=== PATIENT | female | born 1945 | race Caucasian/White ===

== ENCOUNTER 2023-08-07 11:43 | Inpatient (IN) | payer OTHER ==
--- OUTSIDE RECORDS SUMMARY | 2023-08-07 11:47 | XMS REPORT | Continuity of Care Document ---
Author Name Unknown Address [address] [facility] [address] [place] [address] [facility] thconnect Address [address] 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 Name Role Phone Pcp, Patient Does Not Have A Primary Care Physic yuly Luz Elena Luna Attending Clinician Unavailable Kerline Valentin Attending Clinician Unavailable Hazel Lara Attending Clinician Unavailable Janet DIAZ, Portia Swift Attending Clinician UnavailJO ANN Liu Attending Clinician Unavailable Doctor Unassigned, [place] Attending Clinician U navailable Payers Payer Name Policy Type Policy Number Effective Date Expirati on Date Source [employer] MEDICARE PPO 53 [id number] [facility] Problems Condition Name Condition Details Condition Category Status Onset Date Resolution Date Last Treatment Date Treating Clinician Comments Source Total knee replacemen t status Total knee replacemen t status Disease Active 12-12 00:00: 00 [facility] Gastroesop hageal reflux disease GERD (gastroeso phageal reflux disease) Problem Active [facility] Hyperlipid emia Hyperlipid emia Problem Active [facility] History of bilateral mastectomy History of bilateral mastectomy Problem Active [facility] Prediabete s Prediabete s Problem Active [facility] Asthma without status asthmaticu s Asthma without status asthmaticu s or acute exacerbati on Problem Active [facility] Personal history of primary malignant neoplasm of breast History of breast cancer Problem Active [facility] [id number] Pain in left knee Problem Active [facility] [id number] Pain in right knee Problem Active [facility] [id number] Anxiety Problem Active [facility] [id number] Tendonitis of wrist, right Problem Active [facility] [id number] Other chronic pain Problem Active [facility] [id number] Right wrist pain Problem Active [facility] Allergic rhinitis Allergic rhinitis, unspecifie d seasonalit y, unspecifie d trigger Problem Active [facility] [id number] Essential hypertensi on Problem Active [facility] [id number] Goiter Problem Active [facility] [id number] Thyroid nodule Problem Active [facility] [id number] Pain, joint, hand, right Problem Active [facility] Allergies, Adverse Reactions, Alerts Allergy Name Allergy Type Status Severity Reaction(s) Onset Date Inactive Date Treating Clinician Comments Source Tramadol Propensi ty to adverse reaction s to drug Active Nausea and/or Vomiting 12-12 00:00: 00 [facility] TRAMADOL DRUG INGREDI Active High N/V 12-12 00:00: 00 [facility] Aspartam e Propensi ty to adverse reaction s to drug Active Rash 12-07 00:00: 00 [facility] Codeine Propensi ty to adverse reaction s to drug Active Nausea and/or Vomiting 12-07 00:00: 00 Severe nausea and vomiting [facility] Hydrocod one Propensi ty to adverse reaction s to drug Active Nausea and/or Vomiting 12-07 00:00: 00 Severe nausea and vomiting [facility] CODEINE DRUG INGREDI Active High N/V 12-07 00:00: 00 [facility] HYDROCOD ONE DRUG INGREDI Active High N/V 12-07 00:00: 00 [facility] MORPHINE DRUG INGREDI Active High N/V 12-07 00:00: 00 [facility] ASPARTAM E DRUG INGREDI Active Med ITCHING 12-07 00:00: 00 [facility] Morphine Propensi ty to adverse reaction s to drug Active Nausea and/or Vomiting 12-07 00:00: 00 Severe nausea and vomiting [facility] 8432 Drug allergy Active rash,itching ,pain [facility] Codeine Codeine Active vomiting [facility] Social History Social Habit Start Date Stop Date Quantity Comments Source History of Tobacco Use [facility] Sex Assigned At [facility] Exposure to SARS-CoV-2 (event) Not sure [facility] Tobacco use and exposure 2015-02-02 00:00:00 2015-02-02 00:00:00 Never used [facility] Alcohol intake 2015-02-02 00:00:00 2015-02-02 00:00:00 Current non-drinker of alcohol (finding) [facility] Smoking Status Start Date Stop Date Source Never Smoker [facility] Medications Ordered Medication Name Filled Medication Name Start Date Stop Date Current Medication? Ordering Clinician Indication Dosage Frequency Signature (SIG) Comments Components Source Medrol 4 MG Medrol 4 MG 1-04 00:00: 00 No Medrol 4 MG ProAir HFA ProAir HFA 12-22 00:00: 00 Yes Hazel Millender 2 puffs as needed for sob/wheezi ng [facility] Albuterol Sulfate Albuterol Sulfate 12-22 00:00: 00 Yes Hazel Millender 3 ml as needed for sob/wheezi ng [facility] BusPIRone HCl BusPIRone HCl -28 00:00: 00 Yes Hazel Millender 1 tablet [facility] Cardura Cardura 3-20 00:00: 00 Yes Hazel Millender 1 tablet as needed for bp > or = 150/90 [facility] lisinopril (PRINIVIL,Z ESTRIL) 40 mg tablet 02-02 16:16: 46 Yes 40mg Take 40 mg by mouth daily. [facility] pravastatin (PRAVACHOL) 40 mg tablet 02-02 16:16: 46 Yes 40mg Take 40 mg by mouth daily. [facility] mometasone (NASONEX) 50 mcg/actuati on nasal spray 02-02 16:16: 46 Yes 2{spray } Use 2 Sprays in each nostril as needed. [facility] hydrochloro thiazide (ESIDRIX) 50 mg tablet 02-02 16:16: 46 Yes 25mg Take 25-50 mg by mouth daily. [facility] DOCUSATE CALCIUM (STOOL SOFTENER ORAL) 02-02 16:16: 46 Yes 1{tbl} Take 1 Tab by mouth as needed for Constipati on. [facility] ranitidine (ZANTAC) 150 mg tablet 02-02 16:16: 46 Yes 150mg Take 150 mg by mouth daily. [facility] cetirizine (ZYRTEC) 10 mg tablet 02-02 16:16: 46 Yes 10mg Take 10 mg by mouth daily. [facility] MULTIVITAMI N ORAL 02-02 16:16: 46 Yes 1{tbl} Take 1 Tab by mouth daily. [facility] omega-3 fatty acids-vitam in E (FISH OIL) 1,000 mg capsule 02-02 16:16: 46 Yes 1g Take 1 g by mouth daily. [facility] aspirin 81 mg chewable tablet 02-02 16:16: 46 Yes 81mg Take 81 mg by mouth daily. [facility] ALBUTEROL SULFATE (PROAIR HFA INHALE) 02-02 16:16: 46 Yes 2{puff} Inhale 2 Puffs every 4 (four) hours as needed. [facility] lisinopril (PRINIVIL,Z ESTRIL) 40 mg tablet 02-02 16:16: 46 Yes 40mg Take 40 mg by mouth daily. [facility] pravastatin (PRAVACHOL) 40 mg tablet 02-02 16:16: 46 Yes 40mg Take 40 mg by mouth daily. [facility] mometasone (NASONEX) 50 mcg/actuati on nasal spray 02-02 16:16: 46 Yes 2{spray } Use 2 Sprays in each nostril as needed. [facility] hydrochloro thiazide (ESIDRIX) 50 mg tablet 02-02 16:16: 46 Yes 25mg Take 25-50 mg by mouth daily. [facility] DOCUSATE CALCIUM (STOOL SOFTENER ORAL) 02-02 16:16: 46 Yes 1{tbl} Take 1 Tab by mouth as needed for Constipati on. [facility] ranitidine (ZANTAC) 150 mg tablet 02-02 16:16: 46 Yes 150mg Take 150 mg by mouth daily. [facility] cetirizine (ZYRTEC) 10 mg tablet 02-02 16:16: 46 Yes 10mg Take 10 mg by mouth daily. [facility] MULTIVITAMI N ORAL 02-02 16:16: 46 Yes 1{tbl} Take 1 Tab by mouth daily. [facility] omega-3 fatty acids-vitam in E (FISH OIL) 1,000 mg capsule 02-02 16:16: 46 Yes 1g Take 1 g by mouth daily. [facility] aspirin 81 mg chewable tablet 02-02 16:16: 46 Yes 81mg Take 81 mg by mouth daily. [facility] ALBUTEROL SULFATE (PROAIR HFA INHALE) 02-02 16:16: 46 Yes 2{puff} Inhale 2 Puffs every 4 (four) hours as needed. [facility] lisinopril (PRINIVIL,Z ESTRIL) 40 mg tablet 02-02 16:16: 46 Yes 40mg Take 40 mg by mouth daily. [facility] pravastatin (PRAVACHOL) 40 mg tablet 02-02 16:16: 46 Yes 40mg Take 40 mg by mouth daily. [facility] mometasone (NASONEX) 50 mcg/actuati on nasal spray 02-02 16:16: 46 Yes 2{spray } Use 2 Sprays in each nostril as needed. [facility] hydrochloro thiazide (ESIDRIX) 50 mg tablet 02-02 16:16: 46 Yes 25mg Take 25-50 mg by mouth daily. [facility] DOCUSATE CALCIUM (STOOL SOFTENER ORAL) 02-02 16:16: 46 Yes 1{tbl} Take 1 Tab by mouth as needed for Constipati on. [facility] ranitidine (ZANTAC) 150 mg tablet 02-02 16:16: 46 Yes 150mg Take 150 mg by mouth daily. [facility] cetirizine (ZYRTEC) 10 mg tablet 02-02 16:16: 46 Yes 10mg Take 10 mg by mouth daily. [facility] MULTIVITAMI N ORAL 02-02 16:16: 46 Yes 1{tbl} Take 1 Tab by mouth daily. [facility] omega-3 fatty acids-vitam in E (FISH OIL) 1,000 mg capsule 02-02 16:16: 46 Yes 1g Take 1 g by mouth daily. [facility] aspirin 81 mg chewable tablet 02-02 16:16: 46 Yes 81mg Take 81 mg by mouth daily. [facility] ALBUTEROL SULFATE (PROAIR HFA INHALE) 02-02 16:16: 46 Yes 2{puff} Inhale 2 Puffs every 4 (four) hours as needed. [facility] lisinopril (PRINIVIL,Z ESTRIL) 40 mg tablet 02-02 16:16: 46 Yes 40mg Take 40 mg by mouth daily. [facility] pravastatin (PRAVACHOL) 40 mg tablet 02-02 16:16: 46 Yes 40mg Take 40 mg by mouth daily. [facility] mometasone (NASONEX) 50 mcg/actuati on nasal spray 02-02 16:16: 46 Yes 2{spray } Use 2 Sprays in each nostril as needed. [facility] hydrochloro thiazide (ESIDRIX) 50 mg tablet 02-02 16:16: 46 Yes 25mg Take 25-50 mg by mouth daily. [facility] DOCUSATE CALCIUM (STOOL SOFTENER ORAL) 02-02 16:16: 46 Yes 1{tbl} Take 1 Tab by mouth as needed for Constipati on. [facility] ranitidine (ZANTAC) 150 mg tablet 02-02 16:16: 46 Yes 150mg Take 150 mg by mouth daily. [facility] cetirizine (ZYRTEC) 10 mg tablet 02-02 16:16: 46 Yes 10mg Take 10 mg by mouth daily. [facility] MULTIVITAMI N ORAL 02-02 16:16: 46 Yes 1{tbl} Take 1 Tab by mouth daily. [facility] omega-3 fatty acids-vitam in E (FISH OIL) 1,000 mg capsule 02-02 16:16: 46 Yes 1g Take 1 g by mouth daily. [facility] aspirin 81 mg chewable tablet 02-02 16:16: 46 Yes 81mg Take 81 mg by mouth daily. [facility] ALBUTEROL SULFATE (PROAIR HFA INHALE) 02-02 16:16: 46 Yes 2{puff} Inhale 2 Puffs every 4 (four) hours as needed. [facility] lisinopril (PRINIVIL,Z ESTRIL) 40 mg tablet 02-02 16:16: 46 Yes 40mg Take 40 mg by mouth daily. [facility] pravastatin (PRAVACHOL) 40 mg tablet 02-02 16:16: 46 Yes 40mg Take 40 mg by mouth daily. [facility] mometasone (NASONEX) 50 mcg/actuati on nasal spray 02-02 16:16: 46 Yes 2{spray } Use 2 Sprays in each nostril as needed. [facility] hydrochloro thiazide (ESIDRIX) 50 mg tablet 02-02 16:16: 46 Yes 25mg Take 25-50 mg by mouth daily. [facility] DOCUSATE CALCIUM (STOOL SOFTENER ORAL) 02-02 16:16: 46 Yes 1{tbl} Take 1 Tab by mouth as needed for Constipati on. [facility] ranitidine (ZANTAC) 150 mg tablet 02-02 16:16: 46 Yes 150mg Take 150 mg by mouth daily. [facility] cetirizine (ZYRTEC) 10 mg tablet 02-02 16:16: 46 Yes 10mg Take 10 mg by mouth daily. [facility] MULTIVITAMI N ORAL 02-02 16:16: 46 Yes 1{tbl} Take 1 Tab by mouth daily. [facility] omega-3 fatty acids-vitam in E (FISH OIL) 1,000 mg capsule 02-02 16:16: 46 Yes 1g Take 1 g by mouth daily. [facility] aspirin 81 mg chewable tablet 02-02 16:16: 46 Yes 81mg Take 81 mg by mouth daily. [facility] ALBUTEROL SULFATE (PROAIR HFA INHALE) 02-02 16:16: 46 Yes 2{puff} Inhale 2 Puffs every 4 (four) hours as needed. [facility] Hydrochloro thiazide Hydrochloro thiazide Yes Hazel Millender 1 tablet in the morning [facility] Fish Oil Fish Oil Yes Hazel Millender 1 capsule [facility] Fluticasone Propionate Fluticasone Propionate Yes Hazel Millender 2 sprays in each nostril [facility] Multivitami ns Plus Zinc Multivitami ns Plus Zinc Yes Hazel Millender not defined [facility] Pravastatin Sodium Pravastatin Sodium Yes Hazel Millender 1 tablet in the evening [facility] Advair Diskus Advair Diskus Yes Hazel Millender 1 puff [facility] Aspir-81 Aspir-81 Yes Hazel Millender 1 tablet [facility] Stool Softener Stool Softener Yes Hazel Millender 1 capsule as needed [facility] Zyrtec Allergy Zyrtec Allergy Yes Hazel Millender 1 tablet [facility] Losartan Potassium Losartan Potassium Yes Hazel Millender 1 tablet [facility] Advair Diskus 250-50 MCG/DOSE Advair Diskus 250-50 MCG/DOSE No 1{puff} BID Advair Diskus 250-50 MCG/DOSE ZyrTEC Allergy 10 MG ZyrTEC Allergy 10 MG No 1{table t} ZyrTEC Allergy 10 MG Aspir-81 81 MG Aspir-81 81 MG No 1{table t} QD Aspir-81 81 MG Albuterol Sulfate (2.5 MG/3ML) 0.083% Albuterol Sulfate (2.5 MG/3ML) 0.083% No Albuterol Sulfate (2.5 MG/3ML) 0.083% Fluticasone Propionate 50 MCG/ACT Fluticasone Propionate 50 MCG/ACT No 2{spray s_in_ea ch_nost ril} QD Fluticason e Propionate 50 MCG/ACT ProAir HFA 108 (90 Base) MCG/ACT ProAir HFA 108 (90 Base) MCG/ACT No ProAir HFA 108 (90 Base) MCG/ACT Stool Softener 100 MG Stool Softener 100 MG No 1{capsu le_as_n eeded} QD Stool Softener 100 MG Losartan Potassium 100 mg Losartan Potassium 100 mg No 1{table t} QD Losartan Potassium 100 mg Fish Oil 1000 MG Fish Oil 1000 MG No 1{capsu le} QD Fish Oil 1000 MG busPIRone HCl 7.5 MG busPIRone HCl 7.5 MG No 1{table t} busPIRone HCl 7.5 MG Pravastatin Sodium 40 MG Pravastatin Sodium 40 MG No 1{table t_in_ e_eveni ng} QD Pravastati n Sodium 40 MG hydroCHLORO thiazide 25 mg hydroCHLORO thiazide 25 mg No 1{table t_in_ e_herve ng} QD hydroCHLOR Othiazide 25 mg Multivitami ns Plus Zinc - Multivitami ns Plus Zinc - No Multivitam ins Plus Zinc - Cardura 1 MG Cardura 1 MG No QD Cardura 1 MG Vital Signs Vital Name Observation Time Observation Value Pam mason height 2021-05-15 09:00:00 65.5 [in_i] Comm on [facility] weight 2021-05-15 09:00:00 189 [lb_av] Comm on [facility] bmi 2021-05-15 09:00:00 30.97 kg/m2 Comm on [facility] blood pressure systolic 2021-05-15 09:00:00 149 mm[Hg] [facility] blood pressure diastolic 2021-05-15 09:00:00 80 mm[Hg] [facility] Procedures Procedure Date / Time Performed Performing Clinicia n Source ASSIGNMENT OF BENEFITS 2021-01-01 22:14:46 Docto r Unassigned, [place] [facility] Encounters Start Date/Time End Date/Time Encounter Type Admission Type Attending Clinicians Care Facility Care Department Encounter ID Source 2021-06-06 14:30:34 Outpatient Jeremy Luz Elena [facility] [id number] [facility] 2021-06-06 14:30:11 Outpatient Jeremy Luz Elena [facility] [id number] [facility] 2021-06-06 13:15:[address] [facility] [id number] [facility] 2021-06-06 12:37:50 [facility] [id number] [facility] 2021-06-06 12:36:[address] [facility] [id number] [facility] 2021-06-06 12:31:[address] [facility] [id number] [facility] 2021-06-06 12:31:[address] [facility] [id number] [facility] 2021-05-15 00:00:00 2021-05-15 00:00:00 OFFICE VISIT EST PT LEVEL 3 [facility] [id number] [facility] 2021-01-03 00:00:00 2021-01-03 00:00:00 Letter (Out) Portia Gonzales [facility] [id number] [facility] 2021-01-01 17:40:00 2021-01-01 17:40:00 Outpatient JO ANN CARRIZALES [facility] [id number] [facility] 2021-01-01 00:00:00 2021-01-01 00:00:00 Orders Only Doctor Unassigned, [place] [facility] [id number] [facility] 2021-01-01 00:00:00 2021-01-01 00:00:00 Letter (Out) Doctor Unassigned, [place] [facility] [id number] [facility] 2021-01-01 00:00:00 2021-01-01 00:00:00 Letter (Out) Doctor Unassigned, [place] [facility] [id number] [facility] 2020-01-12 13:00:00 2020-01-12 13:00:00 Outpatient Keli swift [facility] [id number] [facility] 2019-12-09 16:20:00 2019-12-09 16:20:[address] [facility] [id number] [facility] 2019-07-14 09:45:00 2019-07-14 09:45:[address] [facility] [id number] [facility] 2019-06-22 10:20:00 2019-06-22 10:20:[address] [facility] [id number] [facility] 2019-01-25 09:16:00 2019-01-25 09:16:[address] [facility] [place] [facility] [id number] [facility] 2019-01-13 13:20:00 2019-01-13 13:20:[address] [facility] [id number] [facility] 2018-12-22 09:40:00 2018-12-22 09:40:[address] [facility] [id number] [facility] 2018-08-13 09:20:00 2018-08-13 09:20:[address] [facility] [place] [facility] [id number] [facility] 2018-08-06 09:30:00 2018-08-06 09:30:[address] [facility] [id number] [facility] 2018-07-10 10:05:00 2018-07-10 10:05:[address] [facility] [id number] [facility] 2018-02-10 13:00:00 2018-02-10 13:00:[address] [facility] [place] [facility] [id number] [facility] 2017-07-29 10:00:00 2017-07-29 10:00:[address] [facility] [place] [facility] [id number] [facility]
[2023-08-07] MEDS ORDERED: HYDROCODONE/APAP 10/325 TAB ONE (12:05)
--- NOTE | 2023-08-07 12:38 | RAD REPORT ---
EXAM DESCRIPTION: RAD - Hip Left 2 View - 08/07/2023 12:31 pm CLINICAL HISTORY: PAIN COMPARISON: None available. TECHNIQUE: Left hip, AP and frogleg views of the left hip. Additional view of the pelvis. FINDINGS: No femoral neck fracture appreciated. Comminuted fractures along the left superior pubic r amus and junction with the pubis. Additional moderately displaced fracture along the left inferior pu bic ramus. No acute or destructive bony process seen. IMPRESSION: Fractures of the left superior and inferior pubic rami as above.
--- NOTE | 2023-08-07 12:46 | RAD REPORT ---
EXAM DESCRIPTION: RAD - Ribs Left - 08/07/2023 12:31 pm CLINICAL HISTORY: PAIN COMPARISON: 08/29/2022 chest radiograph TECHNIQUE: Left ribs, 3 views. FINDINGS: No displaced rib fracture is evident. No aggressive rib lesion. No underlying pneumothorax, effusion, infiltrate or pulmonary contusion. IMPRESSION: Negative left rib series.
--- NOTE | 2023-08-07 13:26 | ER ---
Nurse's Notes [facility] Name: Jil Gutiérrez Age: 77 yrs Sex: Female : 1945 Arrival Date: 08/07/2023 Time: 11:43 Bed 20 Private MD: Diagnosis: Mechanical fall;Left superior and inferior pubic ramus fractures;Contusion of left rib Presentation: 08/06 12:01 Chief complaint: EMS states: "Pt tripped fell and landed on her left hip". Coronavirus rs5 screen: At this time, the client does not indicate any symptoms associated with coronavirus-19. Ebola Screen: No symptoms or risks identified at this time. Initial Sepsis Screen: Does the patient meet any 2 criteria? No. Patient's initial sepsis screen is negative. Does the patient have a suspected source of infection? No. Patient's initial sepsis screen is negative. Risk Assessment: Do you want to hurt yourself or someone else? Patient reports no desire to harm self or others. Onset of symptoms was August 07, 2023. 12:01 Method Of Arrival: EMS: [facility] rs5 12:01 Acuity: BELLE 3 rs5 Historical: - Allergies: 12:02 Aspertain; rs5 - PMHx: 12:02 None; rs5 - PSHx: 12:02 None; rs5 - Immunization history:: Adult Immunizations up to date. - Social history:: Smoking status: Patient denies any tobacco usage or history of. - Family history:: not pertinent. Screenin:44 [facility] ED Fall Risk Assessment (Adult) History of falling in the last 3 months, kd3 including since admission Yes- single mechanical fall (1 pt) Confusion or Disorientation No (0 pts) Intoxicated or Sedated No (0 pts) Impaired Gait No (0 pts) Mobility Assist Device Used No (0 pt) Altered Elimination No (0 pt) Score/Fall Risk Level 0 - 2 = Low Risk Oriented to surroundings, Maintained a safe environment. Abuse screen: Denies threats or abuse. Denies injuries from another. Nutritional screening: No deficits noted. Tuberculosis screening: No symptoms or risk factors identified. Assessment: 11:55 General: Appears in no apparent distress. uncomfortable, Behavior is cooperative. Pain: rs5 Complains of pain in pelvis Pain currently is 8 out of 10 on a pain scale. Quality of pain is described as aching, Is continuous. Neuro: Level of Consciousness is awake, alert, obeys commands, Oriented to person, place, time, situation. Cardiovascular: Patient's skin is warm and dry. Rhythm is regular. Respiratory: Respiratory effort is even, unlabored, Respiratory pattern is regular, symmetrical. 11:55 GI: Abdomen is round non-distended, Abd is soft and non tender X 4 quads. : No signs rs5 and/or symptoms were reported regarding the genitourinary system. EENT: No signs and/or symptoms were reported regarding the EENT system. Derm: Skin is intact, Skin is pink, warm \\T\\ dry. Musculoskeletal: Range of motion: limited in left leg. 13:05 Reassessment: Patient and/or family updated on plan of care and expected duration. Pain rs5 level reassessed. Patient is alert, oriented x 3, equal unlabored respirations, skin warm/dry/pink. Patient states feeling better. 14:13 General: Pt refusing Zofran despite nausea and vomiting. . kd3 14:43 Reassessment: Patient and/or family updated on plan of care and expected duration. Pain rs5 level reassessed. Patient is alert, oriented x 3, equal unlabored respirations, skin warm/dry/pink. Patient states feeling better. Reassessment: pt states "I'm hurting a little bit but I don't want any pain meds at this moment". Pain: Complains of pain in pelvis Pain currently is 2 out of 10 on a pain scale. Quality of pain is described as aching, Is continuous. Vital Signs: 13:43 BP 180 / 79; Pulse 77; Resp 17; Temp 98.1(O); Pulse Ox 98% ; kd3 14:47 BP 177 / 77; Pulse 80; Resp 18; Pulse Ox 98% on R/A; rs5 ED Course: 11:50 Patient arrived in ED. aa5 11:50 Andre Fitzgerald MD is Attending Physician. rt 11:55 Patient has correct armband on for positive identification. Placed in gown. Bed in low rs5 position. Call light in reach. Side rails up X2. 12:00 Iván Lopes RN is Primary Nurse. rs5 12:02 Triage completed. rs5 12:31 X-ray completed. Patient tolerated procedure well. Patient moved back from radiology. mh1 12:33 Ribs Left XRAY In Process Unspecified. EDMS 12:33 Hip Left 2 View XRAY In Process Unspecified. EDMS 13:24 Braydon Huizar MD is Hospitalizing Provider. rt 13:43 Inserted saline lock: 18 gauge in left antecubital area, using aseptic technique. Blood kd3 collected. 13:44 Arm band placed on right wrist. kd3 13:50 Patient admitted, IV remains in place. rs5 14:47 No provider procedures requiring assistance completed. rs5 Administered Medications: 12:05 Drug: [place] PO 10 mg-325 mg 1 tabs PO once Route: PO; rs5 13:07 Follow up: Response: No adverse reaction; Pain is decreased rs5 14:40 Not Given (Patient Refused): morphineor iv 2 mg IVP once over 4 mins rs5 14:40 Not Given (Patient Refused): ondansetron 4 mg IVP once; over 2 minutes rs5 Medication: 13:44 VIS not applicable for this client. kd3 Outcome: 13:26 Decision to Hospitalize by Provider. rt 14:50 Patient left the ED. rs5 14:50 Admitted to Med/surg accompanied by tech, rs5 14:50 Condition: stable 14:50 Instructed on the need for admit, Demonstrated understanding of instructions, 14:50 Discharge instructions given to patient, rs5 Signatures: Dispatcher [employer] EDMS Laura Peralta 1 Madelin Meehan RN RN aa5 Yaneth Katz RN RN kd3 Andre Fitzgerald MD MD rt Iván Lopes RN RN rs5 Corrections: (The following items were deleted from the chart) 14:46 13:42 General: Appears in no apparent distress. Behavior is calm, cooperative, kd3 rs5 14:46 13:42 Pain: Complains of pain in pelvis kd3 rs5 14:46 13:42 Pain: kd3 rs5 14:46 13:42 Neuro: Level of Consciousness is awake, alert, obeys commands, Oriented to rs5 person, place, time, situation, kd3 14:46 13:42 Respiratory: Airway is patent Trachea midline Respiratory effort is even, rs5 unlabored, Respiratory pattern is regular, symmetrical, kd3 14:46 13:42 Cardiovascular: Patient's skin is warm and dry. kd3 rs5 17:48 15:02 Patient left the ED. rs5 rs5 17:48 15:00 Discharged to home ambulatory, rs5 rs5 17:48 15:00 Condition: stable rs5 rs5 17:48 15:00 Discharge instructions given to patient, family, Instructed on discharge rs5 instructions, follow up and referral plans. Demonstrated understanding of instructions, follow-up care, rs5 17:49 13:58 Patient left the ED. rs5 rs5 17:49 13:50 Admitted to Med/surg accompanied by tech, rs5 rs5 17:49 13:50 Condition: stable rs5 rs5 17:49 13:50 Instructed on the need for admit, Demonstrated understanding of instructions, rs5 rs5
--- NOTE | 2023-08-07 13:26 | EDPHYS ---
Physician Documentation [facility] Name: Jil Gutiérrez Age: 77 yrs Sex: Female : 1945 Arrival Date: 08/07/2023 Time: 11:43 Bed 20 Private MD: ED Physician Andre Fitzgerald HPI: 08/06 14:41 This 77 yrs old Female presents to ER via EMS with complaints of Fall Injury. rt 14:41 Patient presents to the ED with mechanical fall. The patient reports history of rt vertigo, bent down, when she stood up, became acutely vertiginous, causing her to fall hitting her left side. She reports pain to the left side of her ribs as well as to her left hip. She denies hitting her head. She denies other acute complaints at this time. Pain is aching nature, nonradiating, moderate in severity, no other aggravating or alleviating factors.. Historical: - Allergies: 12:02 Aspertain; rs5 - PMHx: 12:02 None; rs5 - PSHx: 12:02 None; rs5 - Immunization history:: Adult Immunizations up to date. - Social history:: Smoking status: Patient denies any tobacco usage or history of. - Family history:: not pertinent. ROS: 14:41 Constitutional: Negative for fever, chills, and weight loss, Respiratory: Negative for rt shortness of breath, cough, wheezing, and pleuritic chest pain, Abdomen/GI: Negative for abdominal pain, nausea, vomiting, diarrhea, and constipation, Skin: Negative for injury, rash, and discoloration, Neuro: Negative for headache, weakness, numbness, tingling, and seizure, 14:41 Cardiovascular: Positive for Chest wall pain, 14:41 MS/extremity: Positive for contusion, pain, Exam: 14:38 ECG was reviewed by the Attending Physician. rt 14:41 Constitutional: This is a well developed, well nourished patient who is awake, alert, rt and in no acute distress. Head/Face: Normocephalic, atraumatic. Cardiovascular: Regular rate and rhythm with a normal S1 and S2. No gallops, murmurs, or rubs. Normal PMI, no JVD. No pulse deficits. Respiratory: Lungs have equal breath sounds bilaterally, clear to auscultation and percussion. No rales, rhonchi or wheezes noted. No increased work of breathing, no retractions or nasal flaring. Abdomen/GI: Soft, non-tender, with normal bowel sounds. No distension or tympany. No guarding or rebound. No evidence of tenderness throughout. Skin: Warm, dry with normal turgor. Normal color with no rashes, no lesions, and no evidence of cellulitis. MS/ Extremity: Pulses equal, no cyanosis. Neurovascular intact. Full, normal range of motion. 14:41 Chest/axilla: Tenderness to palpation over left lateral chest wall. No crepitus. 14:41 Musculoskeletal/extremity: Tenderness to the left hip without deformity, pulses, motor, sensation intact. Vital Signs: 13:43 BP 180 / 79; Pulse 77; Resp 17; Temp 98.1(O); Pulse Ox 98% ; kd3 14:47 BP 177 / 77; Pulse 80; Resp 18; Pulse Ox 98% on R/A; rs5 MDM: 11:50 Patient medically screened. rt 14:41 Differential diagnosis: Contusion, fracture. Data reviewed: vital signs, nurses notes, rt lab test result(s), EKG, radiologic studies. Consideration of Admission/Observation Patient was admitted/placed on observation. Management of patient was discussed with the following: Hospitalist: Agrees to admit. I considered the following discharge prescriptions or medication management in the emergency department Medications were administered in the Emergency Department. See MAR. Independent interpretation of the following test(s) in the Emergency Department X-Ray: My interpretation is Inferior pubic ramus fracture seen on interpretation of x-ray images. Test considered but Not performed: CT: Denies head trauma, CT scan of the head not indicated. Counseling: I had a detailed discussion with the patient and/or guardian regarding the historical points, exam findings, and any diagnostic results supporting the discharge/admit diagnosis, lab results, radiology results, the need for further work-up and treatment in the hospital. Response to treatment: the patient's symptoms have mildly improved after treatment. 08/06 13:22 Order name: CBC with Diff; Complete Time: 14:49 rt 08/06 13:22 Order name: CMP; Complete Time: 14:17 rt 08/06 14:20 Order name: Basic Metabolic Panel EDMS 08/06 14:20 Order name: Basic Metabolic Panel EDMS 08/06 14:20 Order name: Basic Metabolic Panel EDMS 08/06 14:20 Order name: Basic Metabolic Panel EDMS 08/06 14:20 Order name: Basic Metabolic Panel EDMS 08/06 14:20 Order name: CBC with Automated Diff EDMS 08/06 14:20 Order name: CBC with Automated Diff EDMS 08/06 14:20 Order name: CBC with Automated Diff EDMS 08/06 14:20 Order name: CBC with Automated Diff EDMS 08/06 14:20 Order name: CBC with Automated Diff EDMS 08/06 14:46 Order name: CBC Smear Scan; Complete Time: 14:49 EDMS 08/06 11:51 Order name: Ribs Left XRAY; Complete Time: 12:55 rt 08/06 11:51 Order name: Hip Left 2 View XRAY; Complete Time: 12:55 rt 08/06 13:22 Order name: EKG; Complete Time: 13:23 rt 08/06 14:20 Order name: Physical Therapy Consult EDCO 08/06 13:22 Order name: EKG - Nurse/Tech; Complete Time: 14:37 rt EC:38 Rate is 68 beats/min. Rhythm is regular, Normal Sinus Rhythm with No ectopy. QRS Tamms rt is Normal. SC interval is normal. QRS interval is normal. QT interval is normal. No Q waves. T waves are Normal. No ST changes noted. Administered Medications: 12:05 Drug: [place] PO 10 mg-325 mg 1 tabs PO once Route: PO; rs5 13:07 Follow up: Response: No adverse reaction; Pain is decreased rs5 14:40 Not Given (Patient Refused): morphineor iv 2 mg IVP once over 4 mins rs5 14:40 Not Given (Patient Refused): ondansetron 4 mg IVP once; over 2 minutes rs5 Disposition Summary: 08/07/23 13:26 Hospitalization Ordered Notes: Hospitalization Status: Inpatient Admission rt Provider: Braydon Huizar rt Location: Telemetry/MedSurg (Inpatient) rt Condition: Stable rt Problem: new rt Symptoms: have improved rt Bed/Room Type: Standard rt Room Assignment: 418(08/07/23 14:26) aa5 Diagnosis - Mechanical fall rt - Left superior and inferior pubic ramus fractures rt - Contusion of left rib rt Forms: - Medication Reconciliation Form rt - SBAR form rt - Leadership Thank You Letter rt Signatures: Dispatcher [employer] Madelin Garrison RN RN aa5 Mushtaq Cannon, CLOUD ARCHITECT-C CLOUD ARCHITECT-Cla1 Andre Fitzgerald MD MD rt Iván Lopes RN RN rs5 Corrections: (The following items were deleted from the chart) 14:26 13:26 rt aa5
[2023-08-07] MEDS ORDERED: MORPHINE 2 MG/ML SYR ONE (13:51)
[2023-08-07] MEDS ORDERED: ONDANSETRON 4 MG/2 ML VIAL ONE (14:09)
[2023-08-07 14:10] LABS: Albumin 3.8 g/dL (3.4-5.0); Albumin/Globulin Ratio 1.1 (1.1-1.8); Anion Gap 8.4 mEq/L (5.0-15.0); Bilirubin Total 0.4 mg/dL (0.2-1.0); Globulin 3.6 g/dL (2.3-3.5); Potassium 3.4 mEq/L (3.5-5.1); Protein, Total 7.4 g/dL (6.4-8.2)
[2023-08-07] MEDS ORDERED: MORPHINE 2 MG/ML SYR IV PRN (14:15)
[2023-08-07 14:16] LABS: Absolute Lymphocytes (CBC) 0.9 K/uL (0.7-4.9); Absolute Monocytes 0.7 K/uL (0.1-1.3); Absolute Neutrophil 12.5 K/uL (1.8-8.0); Basophils % 0.3 % (0-1.3); Eosinophils % 0.2 % (0-4.4); Lymphocytes % 6.5 % (15.3-44.8); MCH 30.6 pg (27.0-35.0); MCHC 33.3 g/dL (32.0-36.0); MCV 91.9 fL (80-100); MPV 8.6 fL (7.6-11.3); Nucleated Red Blood Cells % 0.1 % (0-0); Platelets 318 thou/uL (152-406); RBC Red Blood Cell Count 4.57 M/uL (3.86-4.86); Red Cell Distribution Width 13.1 % (12.1-15.2)
[2023-08-07 14:46] LABS: Blood Morphology Comment NOT SEEN (NOT SEEN); Platelet Estimate ADEQ; White Blood Cell Scan OK (OK)
--- NOTE | 2023-08-07 15:46 | P.HP ---
Certification for Inpatient Patient admitted to: Inpatient With expected LOS: >2 Midnights Patient will require the following post-hospital care: None Practitioner: I am a practitioner with admitting privileges, knowledge of patient current condition, hospital course, and medical plan of care. Services: Services provided to patient in accordance with Admission requirements found in Title 42 Section 412.3 of the Code of Federal Regulations Patient History Date of Service: 08/07/23 History of Present Illness: 77-year-old female with history of hypertension, hyperlipidemia presented to the emergency department after sustaining a fall at home with left hip/left chest wall pain. She reports she was walking and tried to bend over when she had an episode of vertigo and fell over onto her left side. She does report history of vertigo with similar episodes in the past. She was evaluated in the emergency department her labs are significant for white blood cell 14.2 sodium 132 potassium 3.4 glucose 130 x-ray was performed of the left ribs which was negative for acute findings, left hip x-ray was also performed which revealed fractures of left superior and inferior pubic rami. ED prior wishes to admit patient for further evaluation and management of pubic rami fractures. Allergies codeine Allergy (Unverified 10/04/14 17:05) Anaphylaxis Narcotics (GI upset) Allergy (Uncoded 10/04/14 17:05) Unknown - Past Medical/Surgical History -: Hypertension -: hyperlipidemia -: Allergies -: Bilateral knees -: Left wrist surgery -: Trigger finger release -: Bilateral mastectomy Psychosocial/ Personal History: Lives at home alone - Family History Mother -: Kidney disease Father -: Cancer - Social History Smoking Status: Never smoker Alcohol use: No CD- Drugs: No Caffeine use: Yes Place of Residence: Home Review of Systems 10-point ROS is otherwise unremarkable Musculoskeletal: Other (Chest wall pain, left hip pain) Physical Examination - Vital Signs Temperature: 98.1 F Blood Pressure: 177/77 Pulse: 80 Respirations: 18 - Physical Exam General: Alert, In no apparent distress, Oriented x3 HEENT: Atraumatic, PERRLA, EOMI Neck: Supple, 2+ carotid pulse no bruit, No LAD Respiratory: Clear to auscultation bilaterally, Normal air movement Cardiovascular: Regular rate/rhythm, Normal S1 S2 Gastrointestinal: Normal bowel sounds, No tenderness Musculoskeletal: No tenderness Integumentary: No rashes Neurological: Normal speech, Normal strength at 5/5 x4 extr, Normal tone, Normal affect - Studies Laboratory Data (last 24 hrs) 08/07/23 08/07/23 13:47 13:47 WBC 14.20 H Hgb 14.0 Hct 42.0 Plt Count 318 Sodium 132 L Potassium 3.4 L BUN 13 Creatinine 0.71 Glucose 130 H Total Bilirubin 0.4 AST 22 ALT 26 Alkaline Phosphatase 57 Assessment and Plan - Plan Assessment: Left superior/inferior pubic rami fracture Left chest wall pain status post fall Vertigo Hypertension Hyperlipidemia Plan: Left superior/inferior pubic rami fracture Left chest wall pain status post fall PT, weightbearing as tolerated left lower extremity Incentive spirometry As needed pain medications Disposition pending PT eval Vertigo Reports dealing with vertigo in the past, takes meclizine as needed, continue as needed meclizine Hypertension Hyperlipidemia Continue home medications DVT PPX: Lovenox Code status: Full Discharge Plan: Home Plan to discharge in: 24 Hours - Advance Directives Does patient have a Living Will: No Does patient have a Durable POA for Healthcare: No - Code Status/Comfort Care Code Status Assessed: Yes (Full code) Critical Care: No Time Spent Managing Pts Care (In Minutes): 70
[2023-08-07] MEDS ORDERED: MECLIZINE HCL 12.5 MG TAB PO PRN (15:48)
[2023-08-07 16:14] VITALS: BMI 32.8
[2023-08-08] MEDS: TRAMADOL HCL 50 MG TAB PO PRN (06:01)
[2023-08-08 06:46] LABS: Absolute Eosinophils 0.1 K/uL (0-0.5); Absolute Lymphocytes (CBC) 1.1 K/uL (0.7-4.9); Absolute Monocytes 0.8 K/uL (0.1-1.3); Absolute Neutrophil 6.1 K/uL (1.8-8.0); Basophils % 0.5 % (0-1.3); Eosinophils % 0.6 % (0-4.4); Hematocrit 40.7 % (36.0-45.0); Hemoglobin 13.9 g/dL (12.0-15.0); Lymphocytes % 13.8 % (15.3-44.8); MCH 31.4 pg (27.0-35.0); MCHC 34.2 g/dL (32.0-36.0); MCV 91.8 fL (80-100); MPV 8.1 fL (7.6-11.3); Monocytes % 9.5 % (3.3-12.3); Neutrophils % 75.6 % (41.7-73.7); Platelets 300 thou/uL (152-406); RBC Red Blood Cell Count 4.44 M/uL (3.86-4.86); Red Cell Distribution Width 13.5 % (12.1-15.2)
[2023-08-08 07:09] LABS: Anion Gap 7.7 mEq/L (5.0-15.0); Potassium 3.7 mEq/L (3.5-5.1)
[2023-08-08] MEDS: ENOXAPARIN 40 MG/0.4 ML SQ SCH (09:33)
[2023-08-08] MEDS: LOSARTAN POTASSIUM 50 MG TABLET PO SCH (09:34)
[2023-08-08] MEDS: POTASSIUM CL SA 10 MEQ TAB PO ONE (09:34)
[2023-08-08] MEDS: hydroCHLOROthiazide 25 MG TAB PO SCH (09:34)
--- NOTE | 2023-08-08 11:53 | EKG ---
Test Date: 2023-08-07 Test Time: 13:36:16 Postal Inspector: SALO MEASUREMENT RESULTS: Intervals: Rate: 68 MN: 180 QRSD: 102 QT: 424 QTc: 450 [place]: P: 72 MN: 180 QRS: 72 T: 66 INTERPRETIVE STATEMENTS: Normal sinus rhythm Normal ECG No previous ECG available for comparison Electronically Signed On 08-08-23 11:49:27 CDT by Joe Koehler
--- NOTE | 2023-08-08 13:19 | P.PN ---
Date of Service: 08/08/23 Subjective: Pain well controlled at rest was able to sit on EOB but not stand or ambulate yet given pain ROS: 10 point ROS as noted above, otherwise negative Physical exam GEN: Alert, oriented, NAD HEENT: Normal conjunctiva, sclera anicteric CV: Regular rate and rhythm, no edema Pulm: Nonlabored respirations on room air ABD: Soft, nontender, nondistended MSK: No joint tenderness Integumentary: No rashes Neuro: Normal speech, normal affect Vitals reviewed Assessment: Left superior/inferior pubic rami fracture Left chest wall pain status post fall Vertigo Hypertension Hyperlipidemia Plan: Left superior/inferior pubic rami fracture Left chest wall pain status post fall PT, weightbearing as tolerated left lower extremity Incentive spirometry As needed pain medications starting SNF referral process Vertigo Reports dealing with vertigo in the past, takes meclizine as needed, continue as needed meclizine Hypertension Hyperlipidemia home meds continued DVT PPX: Lovenox 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 I performed a substantial part of the MDM during this patient's care today as noted above in the plan of care. I agree with plan of care as noted above with the following additions / corrections: no pain at rest. working with PT lives alone, with intermittent vertigo would benefit from rehab, SNF vs inpatient rehab. family requesting [facility] in [place] <Braydon Huizar - Last Filed: 08/08/23 22:21>
[2023-08-08] MEDS: ATORVASTATIN 10 MG TAB PO SCH (19:39)
[2023-08-09 04:03] LABS: Absolute Basophils 0.1 K/uL (0-0.5); Absolute Eosinophils 0.1 K/uL (0-0.5); Absolute Lymphocytes (CBC) 1.3 K/uL (0.7-4.9); Absolute Monocytes 1.3 K/uL (0.1-1.3); Absolute Neutrophil 9.7 K/uL (1.8-8.0); Basophils % 0.6 % (0-1.3); Eosinophils % 1.1 % (0-4.4); Hemoglobin 14.1 g/dL (12.0-15.0); Lymphocytes % 10.6 % (15.3-44.8); MCH 31.5 pg (27.0-35.0); MCHC 34.2 g/dL (32.0-36.0); MCV 91.8 fL (80-100); MPV 8.3 fL (7.6-11.3); Monocytes % 10.6 % (3.3-12.3); Neutrophils % 77.1 % (41.7-73.7); Nucleated Red Blood Cells % 0.1 % (0-0); Platelets 293 thou/uL (152-406); RBC Red Blood Cell Count 4.47 M/uL (3.86-4.86); Red Cell Distribution Width 13.5 % (12.1-15.2)
[2023-08-09] MEDS ORDERED: ALBUTEROL 2.5 MG/3 ML NEB SOL NEB PRN (08:05)
--- NOTE | 2023-08-09 12:48 | P.PN ---
Date of Service: 08/09/23 Subjective: Pain well controlled at rest Working with PT ROS: 10 point ROS as noted above, otherwise negative Physical exam GEN: Alert, oriented, NAD HEENT: Normal conjunctiva, sclera anicteric CV: Regular rate and rhythm, no edema Pulm: Nonlabored respirations on room air ABD: Soft, nontender, nondistended MSK: No joint tenderness Integumentary: No rashes Neuro: Normal speech, normal affect Vitals reviewed Assessment: Left superior/inferior pubic rami fracture Left chest wall pain status post fall Vertigo Hypertension Hyperlipidemia Plan: Left superior/inferior pubic rami fracture Left chest wall pain status post fall PT, weightbearing as tolerated left lower extremity Incentive spirometry As needed pain medications starting inpatient rehab referral Vertigo Reports dealing with vertigo in the past, takes meclizine as needed, continue as needed meclizine Hypertension Hyperlipidemia home meds continued BP elevated this morning Continue to monitor may need meds adjusted DVT PPX: Lovenox Code status: Sybase Developer Spent Managing Pts Care (In Minutes): 35
[2023-08-09] MEDS: ACETAMINOPHEN 325 MG TABLET PO PRN (16:47)
--- NOTE | 2023-08-09 18:08 | RAD REPORT ---
EXAM DESCRIPTION: Sun Single View08/09/2023 5:40 pm CLINICAL HISTORY: Chest pain COMPARISON: 2022 FINDINGS: The lungs appear clear of acute infiltrate. The heart is normal size IMPRESSION: No acute abnormalities displayed
[2023-08-09 18:34] LABS: INFLUENZA A NAA NEGATIVE (NEGATIVE); SARS-COV-2 RT PCR NEGATIVE (NEGATIVE)
[2023-08-09 20:14] LABS: Specific Gravity 1.017 (1.005-1.030); Sqamous Epithelial None Seen /HPF (None Seen); Urine Bacteria None Seen /HPF (<20); Urine Bilirubin NEGATIVE (Negative); Urine Blood Negative (Negative); Urine Clarity Clear (Clear); Urine Color Light-Yellow (Yellow); Urine Culture Reflex Order NOT NEEDED; Urine Glucose NEGATIVE (Negative); Urine Ketones NEGATIVE (Negative); Urine Micro Reflex YN NO BILL MICROSCOPIC; Urine Mucus Slight /HPF (None Seen); Urine Nitrite NEGATIVE (Negative); Urine Protein TRACE (Negative); Urine Urobilinogen Normal (Normal); Urine WBC <5 /HPF (<5); Urine pH 6.5 (5.0-7.0)
[2023-08-09] MEDS: POLYETHYL GLY 3350 17 GM/DOSE PO ONE (20:26)
--- NOTE | 2023-08-09 21:21 | RAD REPORT ---
EXAM DESCRIPTION: CT - Abdomen Pelvis W Contrast - 08/09/2023 9:03 pm CLINICAL HISTORY: Abdominal pain COMPARISON: 2019 TECHNIQUE: Computed axial tomography of the abdomen pelvis was obtained. 100 cc Isovue-300 was admin istered intravenously. Oral contrast was not requested which limits evaluation of bowel and appendix All CT scans are performed using dose optimization technique as appropriate and may include automated exposure control or mA/KV adjustment according to patient size. FINDINGS: A few areas of subsegmental atelectasis right lower lobe Small hiatal hernia The liver, spleen, pancreas, and adrenals unremarkable. No renal mass. No hydronephrosis. Mild bilateral perirenal fluid. There is no evidence of diverticulitis. No adnexal mass. Calcified uterine fibroids. No adnexal mass Subacute mildly displaced fractures left inferior and superior pubic rami. Mild bladder distention IMPRESSION: Subacute mildly displaced fractures left inferior and superior pubic rami. A few areas of subsegmental atelectasis right lower lobe \ Mild bladder distention
[2023-08-10 04:06] LABS: Absolute Basophils 0.1 K/uL (0-0.5); Absolute Eosinophils 0.1 K/uL (0-0.5); Absolute Lymphocytes (CBC) 1.3 K/uL (0.7-4.9); Absolute Monocytes 1.6 K/uL (0.1-1.3); Absolute Neutrophil 9.7 K/uL (1.8-8.0); Basophils % 0.4 % (0-1.3); Eosinophils % 0.5 % (0-4.4); Hemoglobin 13.3 g/dL (12.0-15.0); Lymphocytes % 10.2 % (15.3-44.8); MCH 30.7 pg (27.0-35.0); MCHC 33.3 g/dL (32.0-36.0); MCV 92.3 fL (80-100); MPV 8.7 fL (7.6-11.3); Monocytes % 12.5 % (3.3-12.3); Neutrophils % 76.4 % (41.7-73.7); Platelets 299 thou/uL (152-406); RBC Red Blood Cell Count 4.33 M/uL (3.86-4.86); Red Cell Distribution Width 13.6 % (12.1-15.2)
[2023-08-10 04:27] LABS: Anion Gap 9.6 mEq/L (5.0-15.0); Potassium 3.6 mEq/L (3.5-5.1)
--- NOTE | 2023-08-10 05:45 | P.PN ---
Date of Service: 08/09/23 Patient evaluated. Patient with some abdominal distention. Straight catheter completed for urinalysis and patient with 1 L of urinary retention. CT completed after straight catheterization and findings as below: IMPRESSION: Subacute mildly displaced fractures left inferior and superior pubic rami. A few areas of subsegmental atelectasis right lower lobe \ Mild bladder distention We went ahead and replace Jacobs catheter this morning. Patient with 999 cc of urine output once again. Jacobs catheter has been placed. Will continue monitoring patient's symptoms.
[2023-08-10] MEDS: POTASSIUM CL SA 10 MEQ TAB PO ONE (09:41)
[2023-08-10] MEDS: NA CHLORIDE 0.9% 1,000 ML IV SCH (09:43)
[2023-08-10] MEDS: POLYETHYL GLY 3350 17 GM/DOSE PO ONE (11:18)
--- NOTE | 2023-08-10 13:30 | P.PN ---
Date of Service: 08/10/23 Subjective: Had fever yesterday also with urinary retention S/P rodrigez insertion C/O constipation ROS: 10 point ROS as noted above, otherwise negative Physical exam GEN: Alert, oriented, NAD HEENT: Normal conjunctiva, sclera anicteric CV: Regular rate and rhythm, no edema Pulm: Nonlabored respirations on room air ABD: Soft, nontender, nondistended MSK: No joint tenderness Integumentary: No rashes Neuro: Normal speech, normal affect Vitals reviewed Assessment: Left superior/inferior pubic rami fracture Left chest wall pain status post fall Fever Urinary retention Constipation Vertigo Hypertension Hyperlipidemia Plan: Left superior/inferior pubic rami fracture Left chest wall pain status post fall PT, weightbearing as tolerated left lower extremity, was able to stand x2 on 08/08 Incentive spirometry As needed pain medications starting inpatient rehab referral Fever 08/08 x1 UA not concerning for UTI CXR with atelectasis CT abd pelvis negative for infectious process Viral swabs negative Possibly related to urinary retention/atelectasis Hold off on antibiotics for now Urinary retention Retaining >1L x2 overnight Rodrigez placed 08/09 morning Possibly related to constipation Constipation Miralax x1 this am Suppository and possible enema if no BM today Vertigo Reports dealing with vertigo in the past, takes meclizine as needed, continue as needed meclizine Hypertension Hyperlipidemia home meds continued BP elevated this morning Continue to monitor may need meds adjusted DVT PPX: Lovenox Code status: Nutrient Management Specialist Spent Managing Pts Care (In Minutes): 35
[2023-08-10] MEDS: BISACODYL 10 MG RECTAL SUPP PR ONE (16:56)
[2023-08-10] MEDS: FLEET ENEMA ADULT PR ONE (22:36)
[2023-08-11 06:14] LABS: Absolute Eosinophils 0.1 K/uL (0-0.5); Absolute Lymphocytes (CBC) 1.3 K/uL (0.7-4.9); Absolute Monocytes 1.5 K/uL (0.1-1.3); Absolute Neutrophil 9.8 K/uL (1.8-8.0); Basophils % 0.2 % (0-1.3); Eosinophils % 0.5 % (0-4.4); Hematocrit 36.8 % (36.0-45.0); Hemoglobin 12.4 g/dL (12.0-15.0); Lymphocytes % 10.2 % (15.3-44.8); MCH 30.8 pg (27.0-35.0); MCHC 33.6 g/dL (32.0-36.0); MCV 91.4 fL (80-100); MPV 8.4 fL (7.6-11.3); Monocytes % 11.9 % (3.3-12.3); Neutrophils % 77.2 % (41.7-73.7); Platelets 288 thou/uL (152-406); RBC Red Blood Cell Count 4.03 M/uL (3.86-4.86); Red Cell Distribution Width 13.4 % (12.1-15.2)
[2023-08-11 06:23] LABS: Anion Gap 8.7 mEq/L (5.0-15.0); Potassium 3.7 mEq/L (3.5-5.1)
[2023-08-11] MEDS: POTASSIUM CL SA 10 MEQ TAB PO ONE (09:05)
[2023-08-11] MEDS: AMLODIPINE 10 MG TAB PO SCH (09:05)
--- NOTE | 2023-08-11 09:51 | RAD REPORT ---
EXAM DESCRIPTION: US - Extrem Venous W Compress Josse - 08/11/2023 9:42 am CLINICAL HISTORY: elevated ddimer COMPARISON: No comparisons TECHNIQUE: Real-time sonographic evaluation of the lower extremity deep venous systems was performed using color Doppler, grayscale, and compression. FINDINGS: Bilateral lower extremities. Normal compressibility, flow augmentation, phasic flow and spontaneous flow is identified in both the left and right lower extremity deep venous systems. No intraluminal filling defects seen. IMPRESSION: No DVT in either lower extremity.
--- NOTE | 2023-08-11 11:58 | P.PN ---
Date of Service: 08/11/23 Subjective: C/O right knee pain now Finally had BM no acute events overnight ROS: 10 point ROS as noted above, otherwise negative Physical exam GEN: Alert, oriented, NAD HEENT: Normal conjunctiva, sclera anicteric CV: Regular rate and rhythm, no edema Pulm: Nonlabored respirations on room air ABD: Soft, nontender, nondistended MSK: No joint tenderness Integumentary: No rashes Neuro: Normal speech, normal affect Vitals reviewed Assessment: Left superior/inferior pubic rami fracture Left chest wall pain status post fall Fever Urinary retention Constipation Vertigo Hypertension Hyperlipidemia Plan: Left superior/inferior pubic rami fracture Left chest wall pain status post fall PT, weightbearing as tolerated left lower extremity, was able to stand x2 on 08/08 continues to work with PT Incentive spirometry As needed pain medications starting inpatient rehab referral Fever 08/08 x1 UA not concerning for UTI CXR with atelectasis CT abd pelvis negative for infectious process Viral swabs negative Possibly related to urinary retention/atelectasis Negative for DVT DEEPTI No infectious process currently Hold off on antibiotics for now Urinary retention Retaining >1L x2 overnight Jacobs placed 08/09 morning Possibly related to constipation Had 3 BM overnight 08/09-08/[address], plan for voiding trial 08/11 Constipation Had 3 BM, improved continue daily docusate-taking her own Vertigo Reports dealing with vertigo in the past, takes meclizine as needed, continue as needed meclizine Hypertension Hyperlipidemia home meds continued BP elevated this morning Continue to monitor may need meds adjusted DVT PPX: Lovenox Code status: Legal Consultant Spent Managing Pts Care (In Minutes): 35
[2023-08-12 07:25] LABS: Anion Gap 7.4 mEq/L (5.0-15.0); Potassium 3.4 mEq/L (3.5-5.1)
[2023-08-12 07:55] LABS: Hematocrit 36.1 % (36.0-45.0); Hemoglobin 12.2 g/dL (12.0-15.0); MCH 31.1 pg (27.0-35.0); MCHC 33.9 g/dL (32.0-36.0); MCV 91.7 fL (80-100); MPV 8.7 fL (7.6-11.3); Platelets 316 thou/uL (152-406); RBC Red Blood Cell Count 3.94 M/uL (3.86-4.86); Red Cell Distribution Width 13.3 % (12.1-15.2)
[2023-08-12] MEDS: POTASSIUM 25 MEQ EFFERV TAB PO ONE (09:34)
--- NOTE | 2023-08-12 19:50 | P.PN ---
Date of Service: 08/12/23 Subjective: Cheerful and talkative this morning working with physical therapy no new complaints ROS: 10 point ROS as noted above, otherwise negative Physical exam GEN: AAOx3, No acute distress, calm HEENT: Normal conjunctiva, sclera anicteric CV: RRR, no edema, S1 S2 present, Systolic murmur noted Pulm: Nonlabored respirations on room air, symmetrical chest wall movement ABD: Soft, nontender, nondistended MSK: No joint tenderness Integumentary: No rashes Neuro: Normal speech, normal affect Vitals reviewed Assessment: Left superior/inferior pubic rami fracture Left chest wall pain status post fall Fever Urinary retention Constipation Vertigo Hypertension Hyperlipidemia Plan: Left superior/inferior pubic rami fracture Left chest wall pain status post fall PT, weightbearing as tolerated left lower extremity, was able to stand x2 on 08/08 continues to work with PT Incentive spirometry As needed pain medications starting inpatient rehab referral Fever 08/08 x1- resolved UA not concerning for UTI CXR with atelectasis CT abd pelvis negative for infectious process Viral swabs negative Possibly related to urinary retention/atelectasis Negative for DVT DEEPTI No infectious process currently Hold off on antibiotics for now Urinary retention Retaining >1L x2 overnight Jacobs placed 08/09 morning Possibly related to constipation Had 3 BM overnight 08/09-08/10 Jacobs dc'd, plan for voiding trial Constipation Had 4 BM, improved 08/10 continue daily docusate-taking her own Vertigo Reports dealing with vertigo in the past, takes meclizine as needed, continue as needed meclizine Hypertension Hyperlipidemia home meds continued BP elevated this morning Continue to monitor may need meds adjusted DVT PPX: Lovenox Code status: Full
[2023-08-13 07:46] LABS: Hemoglobin 12.2 g/dL (12.0-15.0); MCH 31.2 pg (27.0-35.0); MCV 91.8 fL (80-100); Platelets 361 thou/uL (152-406); RBC Red Blood Cell Count 3.92 M/uL (3.86-4.86); Red Cell Distribution Width 13.3 % (12.1-15.2)
[2023-08-13 08:07] LABS: Anion Gap 8.6 mEq/L (5.0-15.0); Potassium 3.6 mEq/L (3.5-5.1)
--- NOTE | 2023-08-13 14:01 | P.PN ---
Date of Service: 08/13/23 Subjective: Feeling well, family friend at bedside Awaiting placement continues to work with therapy ROS: 10 point ROS as noted above, otherwise negative Physical exam GEN: NAD, alert and oriented x 3 calm HEENT: Normal conjunctiva, sclera anicteric CV: S1 S2 present, NSR, Systolic murmur noted Pulm: Nonlabored respirations on room air, symmetrical chest wall movement ABD: Soft and benign on palpation, NT/ND, normoactive Bowel sounds MSK: No joint tenderness, 2+ peripheral pulses Integumentary: No rashes Neuro: Normal speech, normal affect Vitals reviewed Assessment: Left superior/inferior pubic rami fracture Left chest wall pain status post fall Fever Urinary retention Constipation Vertigo Hypertension Hyperlipidemia Plan: Left superior/inferior pubic rami fracture Left chest wall pain status post fall PT, weightbearing as tolerated left lower extremity, was able to stand x2 on 08/08 continues to work with PT Incentive spirometry As needed pain medications Awaiting inpatient rehab referral Hyponatremia Na 133 today Initial Na 132 Monitor in AM labs Fever 08/08 x1- resolved UA not concerning for UTI CXR with atelectasis CT abd pelvis negative for infectious process Viral swabs negative Possibly related to urinary retention/atelectasis Negative for DVT DEEPTI No infectious process currently Hold off on antibiotics for now Urinary retention D/T Retaining >1L x2 overnight, Jacobs placed 08/09 morning Possibly related to constipation Had 3 BM overnight 08/09-08/10 Voiding trial failed, reinserted Jacobs with 1350 return 08/13/23 Constipation Had 4 BM, improved 08/10 continue daily docusate-taking her own Vertigo Reports dealing with vertigo in the past, takes meclizine as needed, continue as needed meclizine Hypertension Hyperlipidemia home meds continued BP elevated this morning Continue to monitor may need meds adjusted DVT PPX: Lovenox Code status: Full
[2023-08-14 07:21] LABS: Hematocrit 36.8 % (36.0-45.0); Hemoglobin 12.2 g/dL (12.0-15.0); MCH 30.6 pg (27.0-35.0); MCHC 33.3 g/dL (32.0-36.0); MCV 91.9 fL (80-100); MPV 7.8 fL (7.6-11.3); Platelets 397 thou/uL (152-406); Red Cell Distribution Width 13.2 % (12.1-15.2)
[2023-08-14] MEDS: HYDRALAZINE HCL 20 MG/ML VIAL IV PRN (16:14)
--- NOTE | 2023-08-14 19:24 | P.PN ---
Date of Service: 08/14/23 Subjective: Awake and pleasant conversing well, no new complaints awaiting placement ROS: 10 point ROS as noted above, otherwise negative Physical exam GEN: AAOx3, NAD HEENT: Normal conjunctiva, sclera anicteric CV: S1 S2 present, regular rate and rhythm, Systolic murmur noted Pulm: Nonlabored respirations on room air, symmetrical chest wall movement ABD: Soft and benign on palpation, NT/ND, Bowel sounds present MSK: No joint tenderness, 2+ peripheral pulses Integumentary: No rashes Neuro: Normal speech, normal affect Vitals reviewed Assessment: Left superior/inferior pubic rami fracture Left chest wall pain status post fall Fever Urinary retention Constipation Vertigo Hypertension Hyperlipidemia Plan: Left superior/inferior pubic rami fracture Left chest wall pain status post fall PT, weightbearing as tolerated left lower extremity, was able to stand x2 on 08/08 continues to work with PT Incentive spirometry As needed pain medications Awaiting inpatient rehab referral Hyponatremia Na 134 today Initial Na 132 Monitor in AM labs Fever 08/08 x1- resolved UA not concerning for UTI CXR with atelectasis CT abd pelvis negative for infectious process Viral swabs negative Possibly related to urinary retention/atelectasis Negative for DVT DEEPTI No infectious process currently Hold off on antibiotics for now Urinary retention D/T Retaining >1L x2 overnight, Jacobs placed 08/09 morning Possibly related to constipation Had 3 BM overnight 08/09-08/10 Voiding trial failed, reinserted Jacobs with 1350 return 08/13/23 Constipation Had 4 BM, improved 08/10 continue daily docusate-taking her own Vertigo Reports dealing with vertigo in the past, takes meclizine as needed, continue as needed meclizine Hypertension Hyperlipidemia home meds continued BP elevated this morning Continue to monitor may need meds adjusted DVT PPX: Lovenox Code status: Full
[2023-08-15 07:27] LABS: Hematocrit 37.3 % (36.0-45.0); Hemoglobin 12.4 g/dL (12.0-15.0); MCH 30.7 pg (27.0-35.0); MCHC 33.3 g/dL (32.0-36.0); MCV 92.2 fL (80-100); MPV 7.8 fL (7.6-11.3); Platelets 425 thou/uL (152-406); RBC Red Blood Cell Count 4.05 M/uL (3.86-4.86); Red Cell Distribution Width 13.5 % (12.1-15.2)
[2023-08-15 07:36] LABS: Anion Gap 10.3 mEq/L (5.0-15.0); Potassium 3.3 mEq/L (3.5-5.1)
--- NOTE | 2023-08-15 08:22 | P.PN ---
Date of Service: 08/15/23 Subjective: Awake and pleasant this a.m., using incentive spirometer Awaiting placement, no new complaints ROS: 10 point ROS as noted above, otherwise negative Physical exam GEN: AAOx3, NAD, calm HEENT: Normal conjunctiva, sclera anicteric CV: S1 S2 present, RRR, Systolic murmur noted Pulm: Nonlabored breathing, on room air, symmetrical chest wall movement ABD: normal active sounds present, Soft and benign on palpation, NT/ND, MSK: No joint tenderness, 2+ peripheral pulses Integumentary: No rashes Neuro: Normal speech, normal affect Vitals reviewed Assessment: Left superior/inferior pubic rami fracture Left chest wall pain status post fall Fever Urinary retention Constipation Vertigo Hypertension Hyperlipidemia Plan: Left superior/inferior pubic rami fracture Left chest wall pain status post fall PT, weightbearing as tolerated left lower extremity, was able to stand x2 on 08/08 continues to work with PT Incentive spirometry As needed pain medications Awaiting inpatient rehab referral Hyponatremia Hypokalemia K 3.3, recheck 4.2 Na 133 today Initial Na 132 Monitor in AM labs Replete PRN Fever 08/08 x1- resolved UA not concerning for UTI CXR with atelectasis CT abd pelvis negative for infectious process Viral swabs negative Possibly related to urinary retention/atelectasis Negative for DVT DEEPTI No infectious process currently Hold off on antibiotics for now Urinary retention D/T Retaining >1L x2 overnight, Jacobs placed 08/09 morning Possibly related to constipation Had 3 BM overnight 08/09-08/10 Voiding trial failed, reinserted Jacobs with 1350 return 08/13/23 Constipation Had 4 BM, improved 08/10 continue daily docusate-taking her own Vertigo Reports dealing with vertigo in the past, takes meclizine as needed, continue as needed meclizine Hypertension Hyperlipidemia home meds continued BP elevated this morning Continue to monitor may need meds adjusted DVT PPX: Lovenox Code status: Full Dispo- awaiting placement
[2023-08-15] MEDS: POTASSIUM 25 MEQ EFFERV TAB PO ONE (09:40)
[2023-08-16 03:20] LABS: Hematocrit 38.2 % (36.0-45.0); Hemoglobin 12.8 g/dL (12.0-15.0); MCH 30.7 pg (27.0-35.0); MCHC 33.4 g/dL (32.0-36.0); MCV 91.7 fL (80-100); MPV 8.2 fL (7.6-11.3); Platelets 441 thou/uL (152-406); RBC Red Blood Cell Count 4.17 M/uL (3.86-4.86); Red Cell Distribution Width 13.1 % (12.1-15.2)
[2023-08-16 03:34] LABS: Anion Gap 8.3 mEq/L (5.0-15.0); Potassium 4.3 mEq/L (3.5-5.1)
[2023-08-16] MEDS: POLYETHYL GLY 3350 17 GM/DOSE PO PRN (05:03)
[2023-08-16] MEDS: ONDANSETRON 4 MG/2 ML VIAL IV PRN (12:41)
[2023-08-16] MEDS: FLEET ENEMA ADULT PR PRN (13:45)
--- NOTE | 2023-08-16 14:33 | P.PN ---
Date of Service: 08/16/23 Subjective: Complaining of constipation this a.m. Started vomiting dark liquid Giving enema Awaiting placement ROS: 10 point ROS as noted above, otherwise negative Physical exam GEN: No acute distress, alert and oriented x 3 HEENT: Normal conjunctiva, sclera anicteric CV: Regular rate and rhythm, S1 S2 present, Systolic murmur noted Pulm: Nonlabored breathing, on room air, symmetrical chest wall movement ABD: normal active bowel sounds present, Soft and benign on palpation, tenderness : rodrigez present MSK: No joint tenderness, 2+ peripheral pulses Integumentary: No rashes Neuro: Normal speech, normal affect Vitals reviewed Assessment: Left superior/inferior pubic rami fracture Left chest wall pain status post fall Fever Urinary retention Constipation Vertigo Hypertension Hyperlipidemia Plan: Left superior/inferior pubic rami fracture Left chest wall pain status post fall PT, weightbearing as tolerated left lower extremity, was able to stand x2 on 08/08 continues to work with PT Incentive spirometry As needed pain medications Awaiting inpatient rehab referral Leukocytosis WBC 16 Likely 2/2 inflammation Hyperglycemia Serum glucose 128 A1C pending Hyponatremia Hypokalemia K 4.3 Na 135 today Initial Na 132 Monitor in AM labs Replete PRN Fever 08/08 x1- resolved UA not concerning for UTI CXR with atelectasis CT abd pelvis negative for infectious process Viral swabs negative Possibly related to urinary retention/atelectasis Negative for DVT DEEPTI No infectious process currently Hold off on antibiotics for now Urinary retention D/T Retaining >1L x2 overnight, Rodrigez placed 08/09 morning Possibly related to constipation Had 3 BM overnight 08/09-08/10 Voiding trial failed, reinserted Rodrigez with 1350 return 08/13/23 Constipation Vomiting Had 4 BM, improved 08/10 continue daily docusate-taking her own enema today Vertigo Reports dealing with vertigo in the past, takes meclizine as needed, continue as needed meclizine Hypertension Hyperlipidemia home meds continued BP elevated this morning Continue to monitor may need meds adjusted DVT PPX: Lovenox Code status: Full Dispo- awaiting placement
--- NOTE | 2023-08-16 20:00 | RAD REPORT ---
EXAM DESCRIPTION: RAD - Abdomen 1 View ([facility]) - 08/16/2023 7:35 pm CLINICAL HISTORY: vomiting COMPARISON: Abdomen Pelvis W Contrast dated 08/09/2023 FINDINGS: Nonobstructive bowel gas pattern. Nonspecific gaseous distention of the small bowel and co stepan. Subacute left inferior and superior pubic rami fractures.Visualized lungs are unremarkable.No ab normal calcifications. IMPRESSION: Nonobstructive bowel gas pattern.
[2023-08-16] MEDS: BISACODYL E.C. 5 MG TAB PO SCH (20:34)
[2023-08-17] MEDS ORDERED: SODIUM CHLORIDE 0.9% 10ML INJ IV PRN (00:12)
[2023-08-17] MEDS: PANTOPRAZOLE 40 MG INJ IVP SCH (00:27)
[2023-08-17 01:45] LABS: Absolute Lymphocytes (CBC) 0.8 K/uL (0.7-4.9); Absolute Monocytes 0.8 K/uL (0.1-1.3); Absolute Neutrophil 11.5 K/uL (1.8-8.0); Basophils % 0.3 % (0-1.3); Eosinophils % 0.1 % (0-4.4); Hematocrit 39.7 % (36.0-45.0); Hemoglobin 13.5 g/dL (12.0-15.0); Lymphocytes % 5.9 % (15.3-44.8); MCH 31.3 pg (27.0-35.0); MCHC 34.1 g/dL (32.0-36.0); MCV 91.8 fL (80-100); MPV 7.4 fL (7.6-11.3); Monocytes % 5.8 % (3.3-12.3); Neutrophils % 87.9 % (41.7-73.7); Platelets 511 thou/uL (152-406); RBC Red Blood Cell Count 4.32 M/uL (3.86-4.86); Red Cell Distribution Width 13.6 % (12.1-15.2)
[2023-08-17 02:10] LABS: Albumin 2.9 g/dL (3.4-5.0); Albumin/Globulin Ratio 0.7 (1.1-1.8); Anion Gap 9.8 mEq/L (5.0-15.0); Bilirubin Total 0.4 mg/dL (0.2-1.0); Globulin 4.2 g/dL (2.3-3.5); Magnesium 2.3 mg/dL (1.6-2.4); Phosphorus 4.1 mg/dL (2.5-4.9); Potassium 3.8 mEq/L (3.5-5.1); Protein, Total 7.1 g/dL (6.4-8.2)
[2023-08-17] MEDS: NA CHLORIDE 0.9% 1,000 ML IV SCH (03:23)
[2023-08-17] MEDS: MAGNESIUM CITRATE 300 ML BOT PO SCH ×2 (11:07→15:31)
--- NOTE | 2023-08-17 13:47 | P.PN ---
Date of Service: 08/17/23 Subjective: Feeling better and choosing to not eat to give her bowels a rest Dulcolax scheduled Awaiting placement ROS: 10 point ROS as noted above, otherwise negative Physical exam GEN: NAD, AAOx3, some anxiety HEENT: Normal conjunctiva, sclera anicteric CV: S1 S2 present, Regular rate and rhythm, Systolic murmur noted Pulm: symmetrical chest wall movement, bilateral clear breath sounds, on room air ABD: Soft and benign on palpation, tenderness, : rodrigez present MSK: No joint tenderness, 2+ peripheral pulses Integumentary: No rashes Neuro: Normal speech, normal affect Vitals reviewed Assessment: Left superior/inferior pubic rami fracture Left chest wall pain status post fall Fever Urinary retention Constipation Vertigo Hypertension Hyperlipidemia Plan: Left superior/inferior pubic rami fracture Left chest wall pain status post fall PT, weightbearing as tolerated left lower extremity, was able to stand x2 on 08/08 continues to work with PT Incentive spirometry As needed pain medications Awaiting inpatient rehab referral Leukocytosis WBC 13.10 Likely 2/2 inflammation Hyperglycemia Serum glucose 168 A1C still pending Hyponatremia Hypokalemia K 3.8 Na 134 Monitor in AM labs Replete PRN Fever 08/08 x1- resolved UA not concerning for UTI CXR with atelectasis CT abd pelvis negative for infectious process Viral swabs negative Possibly related to urinary retention/atelectasis Negative for DVT DEEPTI No infectious process currently Hold off on antibiotics for now Urinary retention D/T Retaining >1L x2 overnight, Rodrigez placed 08/09 morning Possibly related to constipation Had 3 BM overnight 08/09-08/10 Voiding trial failed, reinserted Rodrigez with 1350 return 08/13/23 Constipation Vomiting Had 4 BM, improved 08/10 continue daily docusate-taking her own Enema yesterday 08/15, Dulcolax scheduled Vertigo Reports dealing with vertigo in the past, takes meclizine as needed, continue as needed meclizine Hypertension Hyperlipidemia home meds continued BP elevated this morning Continue to monitor may need meds adjusted BM today 08/16 DVT PPX: Lovenox Code status: Full Dispo- awaiting placement <Cecy Peralta - Last Filed: 08/17/23 13:39> Patient seen and evaluated. Plan of care discussed with Fabian. Patient reports no BM for 5 days. She is symptomatic with nausea and vomiting. CT abdomen pelvis reviewed and noted significant stool burden. Plan: Treat constipation with laxatives-trial of mag citrate. Maintain Rodrigez catheter. Voiding trial after constipation has been treated. Supportive measures with analgesics as needed. <rossy myers - Last Filed: 08/17/23 17:00>
[2023-08-18 08:23] LABS: PT Prothrombin Time 13.6 SECONDS (9.5-12.5); Protime INR 1.24
[2023-08-18 08:24] LABS: Absolute Basophils 0.1 K/uL (0-0.5); Absolute Eosinophils 0.2 K/uL (0-0.5); Absolute Lymphocytes (CBC) 1.4 K/uL (0.7-4.9); Absolute Monocytes 1.1 K/uL (0.1-1.3); Basophils % 1.1 % (0-1.3); Eosinophils % 1.4 % (0-4.4); Hematocrit 37.5 % (36.0-45.0); Hemoglobin 12.3 g/dL (12.0-15.0); Lymphocytes % 11.7 % (15.3-44.8); MCH 30.2 pg (27.0-35.0); MCHC 32.8 g/dL (32.0-36.0); MCV 92.1 fL (80-100); MPV 7.5 fL (7.6-11.3); Monocytes % 9.6 % (3.3-12.3); Neutrophils % 76.2 % (41.7-73.7); Platelets 539 thou/uL (152-406); RBC Red Blood Cell Count 4.07 M/uL (3.86-4.86); Red Cell Distribution Width 13.6 % (12.1-15.2)
[2023-08-18 08:34] LABS: Anion Gap 7.6 mEq/L (5.0-15.0); Magnesium 2.8 mg/dL (1.6-2.4); Phosphorus 2.6 mg/dL (2.5-4.9); Potassium 3.6 mEq/L (3.5-5.1)
--- NOTE | 2023-08-18 10:19 | RAD REPORT ---
EXAM DESCRIPTION: CT - Abdomen Pelvis W Contrast - 08/17/2023 6:54 am CLINICAL HISTORY: GI Bleed TECHNIQUE: Axial computed tomography images of the abdomen and pelvis with intravenous contrast. S agittal and coronal reformatted images were created and reviewed. This CT exam was performed using one or more of the following dose reduction techniques: automated exposure control, adjustment of t he mA and/or kV according to patient size, and/or use of iterative reconstruction technique. COMPARISON: CT Abdomen Pelvis dated 08/09/2023 FINDINGS: Lung bases: Bibasilar subsegmental atelectasis/pleural parenchymal scar. Mediastinum: Small hiatal hernia. The distal esophagus appears thickened. ABDOMEN: Liver: Subcentimeter right hepatic hypodensities which are too small to characterize. No follow-up imaging is necessary. Gallbladder and bile ducts: Unremarkable. No calcified stones. No ductal dilation. Pancreas: Mild to moderate pancreatic parenchymal atrophy. No ductal dilation. Spleen: Unremarkable. No splenomegaly. Adrenals: Unremarkable. No mass. Kidneys and ureters: Bilateral perinephric stranding similar to the prior. Normal renal cortical en hancement. No calculi. No hydronephrosis. Stomach and bowel: Duodenal diverticulum. Moderate stool. No bowel obstruction. No appreciable mu cosal thickening. PELVIS: Appendix: The appendix is not definitively visualized. No findings to suggest acute appendicitis. Bladder: The urinary bladder is decompressed around a Jacobs catheter. Reproductive: Calcified uterine fibroids. No adnexal mass. ABDOMEN and PELVIS: Intraperitoneal space: Unremarkable. No free air. No significant fluid collection. Bones/joints: Left superior and inferior pubic rami fractures again demonstrated. No dislocation. Soft tissues: Intramuscular edema involving the left obturator internus and adductor muscles. Vasculature: Unremarkable. No abdominal aortic aneurysm. Lymph nodes: Unremarkable. No enlarged lymph nodes. IMPRESSION: 1. No appreciable bowel wall thickening. 2. The distal esophagus appears thickened. This may be related to esophagitis. 3. Mild bilateral perinephric stranding. This is nonspecific and may be chronic. Acute superim posed inflammatory process not excluded. 4. Left superior and inferior pubic rami fractures and surrounding intramuscular edema again demons trated. 5. Other findings as above. Electronically signed by: Kaia Rivera MD 08/17/2023 02:58 AM CDT Due to temporary technical issues with the PACS/Fluency reporting system, reports are being signed by the in house radiologist without review as a courtesy to ensure prompt reporting. The interpreting r adiologist is fully responsible for the content of the report.
--- NOTE | 2023-08-18 16:11 | P.DS ---
Admission Date: 08/07/23 Discharge Date: 08/18/23 Disposition: TRANSFER TO SNF - REHAB Brief History of Present Illness: Diagnosis Left superior/inferior pubic rami fracture Left chest wall pain status post fall Fever Urinary retention Constipation Vertigo Hypertension Hyperlipidemia HPI 08/07/23 Jil Gutiérrez is a 77-year-old female with history of hypertension, hyperlipidemia presented to the emergency department after sustaining a fall at home with left hip/left chest wall pain. She reports she was walking and tried to bend over when she had an episode of vertigo and fell over onto her left side. She does report history of vertigo with similar episodes in the past. She was evaluated in the emergency department her labs are significant for white blood cell 14.2 sodium 132 potassium 3.4 glucose 130 x-ray was performed of the left ribs which was negative for acute findings, left hip x-ray was also performed which revealed fractures of left superior and inferior pubic rami. ED prior wishes to admit patient for further evaluation and management of pubic rami fractures. Hospital Course: Jil Gutiérrez is a pleasant 77 year old female with a past medical history significant for hypertension and hyperlipidemia who was admitted to the [facility] on 08/07/23 for Fall at home. Jil Gutiérrez presented to the ED with chief complaint of fall after becoming dizzy from vertigo resulting in a fracture On 08/18/23, Jil was seen on morning rounds and deemed medically stable for discharge. Jil was discharged with instructions to schedule follow-up appointments with PCP and orthopedic. No new prescriptions this admission. The patient was given the opportunity to ask questions and reported no further questions. Furthermore, all questions were answered to the best of my ability. A copy of this discharge summary will be sent to the above providers to facilitate continuity of care. Physical exam GEN: No acute distress, alert and oriented x 3 HEENT: Normal conjunctiva, sclera anicteric CV: S1 S2 present, RRR, Systolic murmur noted Pulm: Normal air movement bilateral clear breath sounds, on room air ABD: Soft and benign on palpation, Distended, non tender : rodrigez present MSK: No joint tenderness, 2+ peripheral pulses Integumentary: No rashes Neuro: Normal speech, normal affect Vital Signs/Physical Exam: Temp Pulse Resp BP Pulse Ox 97.2 F 82 18 174/79 H 96 08/18/23 12:00 08/18/23 12:00 08/18/23 12:00 08/18/23 12:00 08/18/23 12:00 Laboratory Data at Discharge: WBC 11.80 thou/uL (4.3-10.9) H 08/18/23 08:00 Hgb 12.3 g/dL (12.0-15.0) 08/18/23 08:00 Hct 37.5 % (36.0-45.0) 08/18/23 08:00 Plt Count 539 thou/uL (152-406) H 08/18/23 08:00 PT 13.6 SECONDS (9.5-12.5) H 08/18/23 08:00 INR 1.24 08/18/23 08:00 Sodium 141 mEq/L (136-145) 08/18/23 08:00 Potassium 3.6 mEq/L (3.5-5.1) 08/18/23 08:00 BUN 19 mg/dL (7-18) H 08/18/23 08:00 Creatinine 0.70 mg/dL (0.55-1.02) 08/18/23 08:00 Glucose 110 mg/dL (74-106) H 08/18/23 08:00 Phosphorus 2.6 mg/dL (2.5-4.9) 08/18/23 08:00 Magnesium 2.8 mg/dL (1.6-2.4) H 08/18/23 08:00 Total Bilirubin 0.4 mg/dL (0.2-1.0) 08/17/23 01:39 AST 31 U/L (15-37) 08/17/23 01:39 ALT 53 U/L (13-56) 08/17/23 01:39 Alkaline Phosphatase 142 U/L (45-117) H 08/17/23 01:39 Home Medications: Docusate [Colace Cap] 100 mg PO BEDTIME 08/08/23 Losartan Potassium 100 mg PO BEDTIME 08/08/23 Pravastatin [Pravachol] 20 mg PO BEDTIME 08/08/23 hydroCHLOROthiazide [Hydrodiuril] 25 mg PO DAILY 08/08/23 Followup: Fabian Conti MD [Primary Care Provider] -
--- NOTE | 2023-08-18 19:31 | P.PN ---
Date of Service: 08/18/23 Subjective: Tolerated magnesium citrate last night, several BMs Feeling better Discharging to [facility] in the a.m. ROS: 10 point ROS as noted above, otherwise negative Physical exam GEN: NAD, AAOx3, some anxiety HEENT: Normal conjunctiva, sclera anicteric CV: S1 S2 present, Regular rate and rhythm, Systolic murmur noted Pulm: Normal chest wall movement, bilateral clear breath sounds, on room air ABD: Soft and benign on palpation, distended, nontender : rodrigez present MSK: No joint tenderness, 2+ peripheral pulses Integumentary: No rashes Neuro: Normal speech, normal affect Vitals reviewed Assessment: Left superior/inferior pubic rami fracture Left chest wall pain status post fall Fever Urinary retention Constipation Vertigo Hypertension Hyperlipidemia Plan: Left superior/inferior pubic rami fracture Left chest wall pain status post fall PT, weightbearing as tolerated left lower extremity, was able to stand x2 on 08/08 continues to work with PT Incentive spirometry As needed pain medications Awaiting inpatient rehab referral Leukocytosis WBC 11.80 Likely 2/2 inflammation Hyperglycemia Serum glucose 110 A1C still pending Hyponatremia Hypokalemia K 3.8 Na 134 Monitor in AM labs Replete PRN Fever 08/08 x1- resolved UA not concerning for UTI CXR with atelectasis CT abd pelvis negative for infectious process Viral swabs negative Possibly related to urinary retention/atelectasis Negative for DVT DEEPTI No infectious process currently Hold off on antibiotics for now Urinary retention D/T Retaining >1L x2 overnight, Rodrigez placed 08/09 morning Possibly related to constipation Had 3 BM overnight 08/09-08/10 Voiding trial failed, reinserted Rodrigez with 1350 return 08/13/23 Constipation Vomiting Had 4 BM, improved 08/10 continue daily docusate-taking her own Enema yesterday 08/15, Dulcolax scheduled -[facility] reports "Nonobstructive bowel gas pattern." -CT abd/pelvis:Moderate stool. No bowel obstruction. No appreciable mucosal thickening. Mag citrate 08/16- several BMs Vertigo Reports dealing with vertigo in the past, takes meclizine as needed, continue as needed meclizine Hypertension Hyperlipidemia home meds continued BP elevated this morning Continue to monitor may need meds adjusted BM today 08/16 DVT PPX: Lovenox- stopped by Dr. Jimenez Code status: Full Dispo- awaiting placement
[2023-08-19 01:31] VITALS: O2SAT 96
[2023-08-19 06:29] LABS: Absolute Basophils 0.1 K/uL (0-0.5); Absolute Eosinophils 0.2 K/uL (0-0.5); Absolute Lymphocytes (CBC) 1.4 K/uL (0.7-4.9); Absolute Monocytes 0.8 K/uL (0.1-1.3); Absolute Neutrophil 6.6 K/uL (1.8-8.0); Basophils % 1.3 % (0-1.3); Eosinophils % 2.1 % (0-4.4); Hematocrit 37.2 % (36.0-45.0); Hemoglobin 12.6 g/dL (12.0-15.0); Lymphocytes % 15.2 % (15.3-44.8); MCH 31.1 pg (27.0-35.0); MCHC 33.8 g/dL (32.0-36.0); MCV 91.9 fL (80-100); MPV 7.1 fL (7.6-11.3); Monocytes % 8.6 % (3.3-12.3); Neutrophils % 72.8 % (41.7-73.7); Nucleated Red Blood Cells % 0.1 % (0-0); Platelets 531 thou/uL (152-406); RBC Red Blood Cell Count 4.04 M/uL (3.86-4.86); Red Cell Distribution Width 13.2 % (12.1-15.2)
[2023-08-19 06:36] LABS: Magnesium 2.3 mg/dL (1.6-2.4); Phosphorus 3.1 mg/dL (2.5-4.9)
[2023-08-19] MEDS: POTASSIUM 25 MEQ EFFERV TAB PO ONE (07:55)
[2023-08-19 13:23] VITALS: BP 162/78; TEMP 98.5
--- NOTE | 2023-08-19 14:06 | P.DS ---
Admission Date: 08/07/23 Discharge Date: 08/19/23 Disposition: TRANSFER TO SNF - REHAB Discharge Condition: GOOD Brief History of Present Illness: 77-year-old female with history of hypertension, hyperlipidemia presented to the emergency department after sustaining a fall at home with left hip/left chest wall pain. She reports she was walking and tried to bend over when she had an episode of vertigo and fell over onto her left side. She does report history of vertigo with similar episodes in the past. She was evaluated in the emergency department her labs are significant for white blood cell 14.2 sodium 132 potassium 3.4 glucose 130 x-ray was performed of the left ribs which was negative for acute findings, left hip x-ray was also performed which revealed fractures of left superior and inferior pubic rami. ED prior wishes to admit patient for further evaluation and management of pubic rami fractures. Hospital Course: Assessment: Left superior/inferior pubic rami fracture Left chest wall pain status post fall Fever Urinary retention Constipation Vertigo Hypertension Hyperlipidemia Jil Gutiérrez presented to the ED with chief complaint of fall after becoming dizzy from vertigo resulting in a fractures of left superior and inferior pubic rami. This is non-operable and will need physical therapy during healing. She had significant bouts of constipation during this admission. Due to decreased mobility and being off her home regiment she became constipated. She tolerated mag citrate well and felt better after several successful BMs. She is being transferred to [facility] today. She will need to follow-up with PCP and orthopedics for continued management. Jacobs catheter was also placed for urinary retention, patient failed voiding trials and Jacobs catheter remains in place at this time. Recommend repeat voiding trials at shelter facility, if patient still has need for Jacobs catheter at discharge will need follow-up with urology outpatient. Continue home medication as prescribed Please also follow-up with your primary care doctorDr. Conti Vital Signs/Physical Exam: Temp Pulse Resp BP Pulse Ox 98.5 F 88 18 162/78 H 97 08/19/23 12:00 08/19/23 12:00 08/19/23 12:00 08/19/23 12:00 08/19/23 12:00 General: Alert, In no apparent distress, Oriented x3 HEENT: Atraumatic, PERRLA Neck: Supple, JVD not distended Respiratory: Clear to auscultation bilaterally, Normal air movement Cardiovascular: Regular rate/rhythm, Normal S1 S2 Gastrointestinal: Normal bowel sounds, No tenderness Musculoskeletal: No tenderness Integumentary: No rashes Neurological: Normal speech, Normal tone, Normal affect Laboratory Data at Discharge: WBC 9.00 thou/uL (4.3-10.9) 08/19/23 05:56 Hgb 12.6 g/dL (12.0-15.0) 08/19/23 05:56 Hct 37.2 % (36.0-45.0) 08/19/23 05:56 Plt Count 531 thou/uL (152-406) H 08/19/23 05:56 PT 13.6 SECONDS (9.5-12.5) H 08/18/23 08:00 INR 1.24 08/18/23 08:00 Sodium 140 mEq/L (136-145) 08/19/23 05:56 Potassium 3.0 mEq/L (3.5-5.1) L D 08/19/23 05:56 BUN 17 mg/dL (7-18) 08/19/23 05:56 Creatinine 0.51 mg/dL (0.55-1.02) L 08/19/23 05:56 Glucose 84 mg/dL (74-106) 08/19/23 05:56 Phosphorus 3.1 mg/dL (2.5-4.9) 08/19/23 05:56 Magnesium 2.3 mg/dL (1.6-2.4) 08/19/23 05:56 Total Bilirubin 0.4 mg/dL (0.2-1.0) 08/17/23 01:39 AST 31 U/L (15-37) 08/17/23 01:39 ALT 53 U/L (13-56) 08/17/23 01:39 Alkaline Phosphatase 142 U/L (45-117) H 08/17/23 01:39 Home Medications: Docusate [Colace Cap*] 100 mg PO BEDTIME 08/08/23 Losartan Potassium 100 mg PO BEDTIME 08/08/23 Pravastatin [Pravachol*] 20 mg PO BEDTIME 08/08/23 Amlodipine [Norvasc*] 10 mg PO DAILY tab 08/19/23 Physician Discharge Instructions: Jil Gutiérrez presented to the ED with chief complaint of fall after becoming dizzy from vertigo resulting in a fractures of left superior and inferior pubic rami. This is non-operable and will need physical therapy during healing. She had significant bouts of constipation during this admission. Due to decreased mobility and being off her home regiment she became constipated. She tolerated mag citrate well and felt better after several successful BMs. She is being transferred to [facility] today. She will need to follow-up with PCP and orthopedics for continued management. Jacobs catheter was also placed for urinary retention, patient failed voiding trials and Jacobs catheter remains in place at this time. Recommend repeat voiding trials at shelter facility, if patient still has need for Jacobs catheter at discharge will need follow-up with urology outpatient. Continue home medication as prescribed Please also follow-up with your primary care doctorDr. Conti Diet: Regular Activity: Weight bearing as tolerated Followup: Fabian Conti MD [Primary Care Provider] - 1-2 Weeks Time spent managing pt's care (in minutes): 30
== END 2023-08-19 13:15 | DRG 536 ==
LOC: ER 11:43 → ERHOLD 14:13 → 4TH 14:58
PROVIDERS: ADMIT Hospitalist; ATTEND Hospitalist
PROC: 0T9B70Z Drainage of Bladder with Drainage Device, Via Natural or Artificial Opening (ICD-10-PCS; principal; 2023-08-10)
DX: S32.592A Other specified fracture of left pubis, initial encounter for closed fracture (principal); E87.1 Hypo-osmolality and hyponatremia; J98.11 Atelectasis; I10 Essential (primary) hypertension; E87.6 Hypokalemia; K59.00 Constipation, unspecified; E78.5 Hyperlipidemia, unspecified; D72.829 Elevated white blood cell count, unspecified; R42 Dizziness and giddiness; R33.9 Retention of urine, unspecified; R73.9 Hyperglycemia, unspecified; R07.89 Other chest pain; Z60.2 Problems related to living alone; Z88.5 Allergy status to narcotic agent; Z11.52 Encounter for screening for COVID-19; Z90.13 Acquired absence of bilateral breasts and nipples; Z79.899 Other long term (current) drug therapy; W18.30XA Fall on same level, unspecified, initial encounter; Y93.89 Activity, other specified; Y92.019 Unspecified place in single-family (private) house as the place of occurrence of the external cause; Y99.9 Unspecified external cause status
CPT/HCPCS: 0240U; 36415; 71045; 74018; 74177; 80048; 80053; 81001; 83036; 83605; 83735; 84100; 84132; 84145; 85025; 85027; 85379; 85610; 87040; 87086; 87088; 93005; 93970; 94010; 97110; 97161; 97165; 97530; 99285; C9113; J0360; J1650; J2270; J2405; J7030; Q9967